=== PATIENT | female | born 1995 | race Caucasian/White ===

== ENCOUNTER → 2017-04-01 | Outpatient (CLI) | payer OTHER ==
--- NOTE | 2017-04-01 15:14 | US ---
EXAMINATION TYPE: US thyroid st tissue head/neck DATE OF EXAM: 04/01/2017 COMPARISON: US CLINICAL HISTORY: E04.9 NONTOXIC GOITER. Nontoxic goiter, enlarged thyroid per patient's physician GLAND SIZE: Right Lobe: 5.8 x 1.7 x 1.9 cm Overall Parenchyma: heterogenous Left Lobe: 5.6 x 1.5 x 1.8 cm Overall Parenchyma: heterogeneous Isthmus Thickness: 0.5 cm NODULES RIGHT: # of nodules measured on right: 1 1. 0.8 X 0.4 x 0.7 cm hypoechoic cystic nodule at the lower pole with well-defined margins. This no dule is wider than tall and shows no intranodular vascularity. Prior size: no previous LEFT: # of nodules measured on left: 1 1. 0.7 X 0.5 x 0.6 cm hyperechoic solid nodule at the upper pole with well-defined margins. This no dule is wider than tall and shows no intranodular vascularity. Prior size: no previous ISTHMUS: # of nodules measured in the isthmus: 0 Bilateral neck scanned, no evidence of lymphadenopathy. Enlarged heterogeneous thyroid with bilateral nodules described above, multiple hypoechoic areas infe rior to left lobe with largest measuring 1.3cm. IMPRESSION: 1. Thyroid enlargement with diffuse heterogeneity. 2. Subcentimeter thyroid nodularity is discussed above
== END | disposition home or self-care (01) ==
LOC: RADUSWWP 14:16
PROVIDERS: ATTEND Family Medicine
DX: E04.9 Nontoxic goiter, unspecified (principal); E04.1 Nontoxic single thyroid nodule
CPT/HCPCS: 76536

== ENCOUNTER → 2017-08-19 | Outpatient (CLI) | payer OTHER ==
--- NOTE | 2017-08-19 07:31 | US ---
EXAMINATION TYPE: US thyroid st tissue head/neck DATE OF EXAM: 08/19/2017 COMPARISON: 04/01/2017 CLINICAL HISTORY: R59.0 Adenopathy of neck. Multiple hypoechoic nodules within bilateral neck with largest = 1.7cm on the right and 1.4cm on the left IMPRESSION: 1. Multiple small hypoechoic nodules within the neck most typical of small lymph nodes.
== END | disposition home or self-care (01) ==
LOC: RADUSWWP 06:59
PROVIDERS: ATTEND Surgery
DX: E04.2 Nontoxic multinodular goiter (principal)
CPT/HCPCS: 76536

== ENCOUNTER 2017-10-27 11:41 | Day surgery (SDC) | payer OTHER ==
--- NOTE | 2017-10-28 08:27 | US ---
Discontinued fine-needle aspiration HISTORY: Thyroid nodule Subcentimeter cystic focus is present at the right lobe of the thyroid. Normal benign-appearing subce ntimeter lymph nodes are noted bilaterally. Thyroid gland is heterogeneous in echotexture. Additional solid subcentimeter nodule noted within the left lobe measuring 6 mm. IMPRESSION: Benign-appearing ultrasound. No fine-needle aspiration performed at this time.
== END 2017-10-27 13:15 | disposition home or self-care (01) ==
LOC: RADPROMAIN 11:41
PROVIDERS: ATTEND Surgery
DX: E04.1 Nontoxic single thyroid nodule (principal); Z53.8 Procedure and treatment not carried out for other reasons
CPT/HCPCS: 76536

== ENCOUNTER 2019-08-03 20:16 | Emergency (ER) | payer OTHER ==
[2019-08-03 20:21] VITALS: BP 108/69; PULSE 120; RESP 18; TEMP 98.3
--- NOTE | 2019-08-03 20:21 | ED ---
Medical Clearance HPI - General Stated complaint: [facility] clearance Time Seen by Provider: 08/03/19 20:19 Source: RN notes reviewed, old records reviewed Mode of arrival: ambulatory (Patient presents with PD) Limitations: no limitations - History of Present Illness Initial comments: Physical 23-year-old female presenting by PD for evaluation prior deferring to incarceration. Patient denying any significant history is significantly altered. Most on exam crying, again patient presents to PD PD wants evaluation secondary to heroin use today. He is within the last hour. Patient is awake and alert able answer questions denying any other significant specific complaints. MD Complaint: medical clearance requested (For [facility]) -: hour(s) (Patient uses heroin within the last hour) Reason for Medical Clearance: other (Drug use) Place: home Alleged Intoxication: Yes Compliant with Home Medications: No Associated Symptoms: other (Patient is without complaint) Treatments Prior to Arrival: none Home medications: Home Medications Medication Instructions Recorded Confirmed Acyclovir 400 mg PO BID 09/30/17 09/30/17 Gabapentin [Neurontin] 100 mg PO BID 09/30/17 09/30/17 QUEtiapine [SEROquel] 100 mg PO HS 09/30/17 09/30/17 Allergies/Adverse reactions: Allergies Allergy/AdvReac Type Severity Reaction Status Date / Time No Known Allergies Allergy Verified 09/30/17 15:30 Review of Systems ROS Statement: Those systems with pertinent positive or pertinent negative responses have been documented in the HPI. ROS Other: All systems not noted in ROS Statement are negative. Past Medical History Past Medical History: Seizure Disorder History of Any Multi-Drug Resistant Organisms: None Reported Past Surgical History: Adenoidectomy, Tonsillectomy Additional Past Surgical History / Comment(s): Past Psychological History: Anxiety, PTSD Past Drug Use History: Heroin, Prescription Drug Abuse General Exam General appearance: alert, in no apparent distress, anxious Head exam: Present: atraumatic, normocephalic, normal inspection Eye exam: Present: normal appearance, PERRL, EOMI. Absent: scleral icterus, conjunctival injection, periorbital swelling ENT exam: Present: normal exam, mucous membranes moist Neck exam: Present: normal inspection. Absent: tenderness, meningismus, lymphadenopathy Respiratory exam: Present: normal lung sounds bilaterally. Absent: respiratory distress, wheezes, rales, rhonchi, stridor Cardiovascular Exam: Present: regular rate, normal rhythm, normal heart sounds. Absent: systolic murmur, diastolic murmur, rubs, gallop, clicks GI/Abdominal exam: Present: soft, normal bowel sounds. Absent: distended, tenderness, guarding, rebound, rigid Extremities exam: Present: normal inspection, full ROM, normal capillary refill. Absent: tenderness, pedal edema, joint swelling, calf tenderness Back exam: Present: normal inspection Neurological exam: Present: alert, oriented X3, CN II-XII intact Psychiatric exam: Present: normal affect, normal mood Skin exam: Present: warm, dry, intact, normal color. Absent: rash Course Vital Signs 08/03/19 20:18 Temperature 98.3 F Pulse Rate 120 H Respiratory 18 Rate Blood Pressure 108/69 O2 Sat by Pulse 99 Oximetry - Reevaluation(s) Reevaluation #1: 08/03/19 20:28 Medical records reviewed Reevaluation #2: 08/03/19 20:28 A she currently awake and alert Medical Decision Making - Medical Decision Making 23 female the ER for incarceration clearance. Patient's awake and alert and will she is feeling today no signs of overdose, patient will be discharged for incarceration Disposition Clinical Impression: Medical clearance for incarceration Disposition: HOME SELF-CARE Condition: Fair Is patient prescribed a controlled substance at d/c from ED?: No Referrals: None,Stated [Primary Care Provider] - 1-2 days
== END 2019-08-03 20:25 | disposition home or self-care (01) ==
LOC: EC 20:16
DX: Z02.89 Encounter for other administrative examinations (principal); F11.90 Opioid use, unspecified, uncomplicated; R45.83 Excessive crying of child, adolescent or adult; G40.909 Epilepsy, unspecified, not intractable, without status epilepticus; F41.9 Anxiety disorder, unspecified; Z79.899 Other long term (current) drug therapy
CPT/HCPCS: 99283

== ENCOUNTER 2020-11-01 15:41 | Emergency (ER) | payer OTHER ==
[2020-11-01 15:59] VITALS: RESP 18
[2020-11-01] MEDS ORDERED: LIDOCAINE 1% INJ 10MG/ML (20 ML MDV) SQ ONE (16:13)
[2020-11-01] MEDS ORDERED: CEPHALEXIN 500MG STARTER PACK 4 CAP BTL PO STA (16:14)
[2020-11-01] MEDS ORDERED: SULFAMETH-TMP DS STARTER PACK 2 TAB BTL PO STA (16:14)
[2020-11-01] MEDS ORDERED: CLINDAMYCIN 600 MG in DEXTROSE 5% IN WATER 50 ML IVPB STA ×2 (16:14)
[2020-11-01] MEDS ORDERED: ACET/COD 300 MG/30 MG STARTER PACK 6 TAB BTL PO STA (16:23)
--- NOTE | 2020-11-01 16:25 | ED ---
Skin/Abscess/FB HPI - General Chief complaint: Skin/Abscess/Foreign Body Stated complaint: Abscess on leg Time Seen by Provider: 11/01/20 15:59 Source: patient Mode of arrival: ambulatory Limitations: no limitations - History of Present Illness Initial comments: 24 or female presented for right upper thigh abscess. Patient states to 3 days ago she noticed a lump in her right upper thigh she states that it felt like an ingrown hair she statesagree larger in size over the past 2 days and developed redness surrounding it. She states she believes is abscess that she has had one in the past. Patient denies being immune compromised she denies chronic steroid use, denies splenectomy. Pt maki fevers, chills, general malaise nausea vomiting chest pain dyspnea, urinary changes. Patient denies other lesions. pt unsure is she has had MRSA In the past. History of previous Heroin use. Patient appear nontoxic on arrival no distress, but does appear uncomfortable if legs touch each other. - Related Data Home Medications Medication Instructions Recorded Confirmed Acyclovir 400 mg PO BID 09/30/17 09/30/17 Gabapentin [Neurontin] 100 mg PO BID 09/30/17 09/30/17 QUEtiapine [SEROquel] 100 mg PO HS 09/30/17 09/30/17 Previous Rx's Medication Instructions Recorded Cephalexin [Keflex] 500 mg PO Q6HR 7 Days #28 cap 11/01/20 Sulfamethox-Tmp 800-160Mg [Bactrim 2 tab PO Q12HR 7 Days #28 tab 11/01/20 DS 800-160 mg] Allergies Allergy/AdvReac Type Severity Reaction Status Date / Time No Known Allergies Allergy Verified 11/01/20 15:59 Review of Systems ROS Statement: Those systems with pertinent positive or pertinent negative responses have been documented in the HPI. ROS Other: All systems not noted in ROS Statement are negative. Past Medical History Past Medical History: Seizure Disorder History of Any Multi-Drug Resistant Organisms: None Reported Past Surgical History: Adenoidectomy, Tonsillectomy Additional Past Surgical History / Comment(s): Past Psychological History: Anxiety, PTSD Smoking Status: Current every day smoker Past Drug Use History: Heroin, Prescription Drug Abuse General Exam - General Exam Comments Initial Comments: General: The patient is awake and alert, in no distress Eye: Pupils are equal, round and reactive to light, extra-ocular movements are intact. No nystagmus. There is normal conjunctiva bilaterally. No signs of icterus. Ears, nose, mouth and throat: There are moist mucous membranes and no oral lesions. Neck: The neck is supple, there is no tenderness or JVD. Cardiovascular: There is a regular rate and rhythm. No murmur, rub or gallop is appreciated. Respiratory: Lungs are clear to auscultation, respirations are non-labored, breath sounds are equal. No wheezes, stridor, rales, or rhonchi. Gastrointestinal: Soft, non-distended, non-tender abdomen without masses or organomegaly noted. There is no rebound or guarding present. Musculoskeletal: Normal ROM, no tenderness. Strength 5/5. Sensation intact. Radial pulses equal bilaterally 2+. Neurological: A&O x 3. CN II-XII intact grossly, There are no obvious motor or sensory deficits. Coordination appears grossly intact. Speech is normal. Skin: Skin is warm and dry and no rashe. Red raised lesions that is fluctuant of the right inner upper thigh, surrounding redness, mild induration, warmth no crepitus. no involvement of the genitalia. Psychiatric: Cooperative, appropriate mood & affect, normal judgment. Limitations: no limitations Course Vital Signs 11/01/20 11/01/20 15:57 17:54 Temperature 98.5 F 98.3 F Pulse Rate 118 H 109 H Respiratory 18 18 Rate Blood Pressure 104/73 117/92 O2 Sat by Pulse 100 98 Oximetry Procedures - Incision & Drainage Consent Obtained: verbal consent, written consent (Time out at 5:04 PM, site marked.) Indication: abscess Site: lower extremity Size (cm): 2 Anesthetic Used: lidocaine 1% Amount (mLs): 1 I&D Cleaning Method: Iodine Sterile Field Used?: No Scalpel Used: #11 Needle Aspiration Performed?: No Irrigation Performed?: No I&D Drainage Obtained: Pus, Blood Patient Tolerated Procedure: well, no complications Medical Decision Making - Medical Decision Making Abscess on exam. Pt initiated on IV abx in ER. Patient will be discharged on orals. denies constitutional symptoms. pt afebrile. does not appear toxic. abscess was drained, significant amount of purulent drainage. pt discharged appearing well agreeble to care plan on keflex and bactrim. Dr Russo agreeable to care plan. - Lab Data Lab Results 11/01/20 Range/Units 16:36 Urine HCG, Qual Not Detected (Not Detectd) Disposition Clinical Impression: Abscess of right thigh Disposition: HOME SELF-CARE Condition: Good Instructions (If sedation given, give patient instructions): Abscess Incision and Drainage (ED), Abscess (ED) Additional Instructions: Please use medication as discussed. Please follow-up with family doctor in the next 2 days. Please return to emergency room if the symptoms increase or worsen or for any other concerns. Prescriptions: Sulfamethox-Tmp 800-160Mg [Bactrim DS 800-160 mg] 2 tab PO Q12HR 7 Days #28 tab Cephalexin [Keflex] 500 mg PO Q6HR 7 Days #28 cap Is patient prescribed a controlled substance at d/c from ED?: No Referrals: Ed Jean MD [Primary Care Provider] - 1-2 days Time of Disposition: 17:14
[2020-11-01 17:57] VITALS: BP 117/92; PULSE 109; TEMP 98.3
== END 2020-11-01 17:56 | disposition home or self-care (01) ==
LOC: EC 15:41
DX: L02.415 Cutaneous abscess of right lower limb (principal); F43.10 Post-traumatic stress disorder, unspecified; F41.9 Anxiety disorder, unspecified; G40.909 Epilepsy, unspecified, not intractable, without status epilepticus; F17.200 Nicotine dependence, unspecified, uncomplicated; Z79.899 Other long term (current) drug therapy
CPT/HCPCS: 81025; 99283; 10060; 96365; J2001

== ENCOUNTER 2022-03-28 21:19 | Inpatient (IN) | payer OTHER ==
--- NOTE | 2022-03-28 22:33 | ED ---
General Adult HPI - General Chief complaint: Skin/Abscess/Foreign Body Stated complaint: Lt hand spider bite/Infection Time Seen by Provider: 03/28/22 22:32 Source: patient Mode of arrival: ambulatory Limitations: no limitations - History of Present Illness Initial comments: Patient presents to the ED with her mother for evaluation. Patient states that she is an IV drug user, and she states that she injected heroin into her left hand yesterday. Patient states that she noticed a little redness and pain in the area in which she injected yesterday, but she states that her left hand redness and pain have increased significantly today. Patient states that she has also developed purulent drainage at the injection site, as well as left hand swelling. Patient states that she came to the ED yesterday to be seen, but it was so busy that she decided to leave before being seen. Patient denies fever, chills, headache, focal neuro deficit, chest pain, dyspnea, dizziness, abdominal pain, nausea or vomiting, or any other symptoms or complaints. - Related Data Home Medications Medication Instructions Recorded Confirmed Acyclovir 400 mg PO BID 09/30/17 09/30/17 Gabapentin [Neurontin] 100 mg PO BID 09/30/17 09/30/17 QUEtiapine [SEROquel] 100 mg PO HS 09/30/17 09/30/17 Previous Rx's Medication Instructions Recorded Sulfamethox-Tmp 800-160Mg [Bactrim 2 tab PO Q12HR 7 Days #28 tab 11/01/20 DS 800-160 mg] cephALEXin [Keflex] 500 mg PO Q6HR 7 Days #28 cap 11/01/20 Allergies Allergy/AdvReac Type Severity Reaction Status Date / Time No Known Allergies Allergy Verified 11/01/20 15:59 Review of Systems ROS Statement: Those systems with pertinent positive or pertinent negative responses have been documented in the HPI. ROS Other: All systems not noted in ROS Statement are negative. Past Medical History Past Medical History: No Reported History, Seizure Disorder History of Any Multi-Drug Resistant Organisms: None Reported Past Surgical History: Adenoidectomy, Tonsillectomy Additional Past Surgical History / Comment(s): Past Psychological History: Anxiety, PTSD Smoking Status: Current every day smoker Past Alcohol Use History: None Reported Past Drug Use History: Heroin, Prescription Drug Abuse General Exam Limitations: no limitations General appearance: alert, in no apparent distress Head exam: Present: atraumatic, normocephalic Eye exam: Present: normal appearance, EOMI ENT exam: Present: mucous membranes moist Respiratory exam: Present: normal lung sounds bilaterally. Absent: respiratory distress, wheezes, rales, rhonchi, stridor Cardiovascular Exam: Present: normal rhythm, tachycardia, normal heart sounds, other (Normal radial pulses bilaterally) GI/Abdominal exam: Present: soft. Absent: tenderness, guarding Extremities exam: Present: other (Left hand swelling, induration, erythema and tenderness consistent with cellulitis; erythema extends proximally to mid forearm ventrally; there is an area along left lateral hand just lateral to the proximal thenar compartment which is draining purulent discharge (cultures obtained)) Neurological exam: Present: alert, oriented X3. Absent: motor sensory deficit Psychiatric exam: Present: anxious Skin exam: Present: warm, dry Course Vital Signs 03/28/22 22:23 Temperature 98.1 F Pulse Rate 112 H Respiratory 20 Rate Blood Pressure 105/59 O2 Sat by Pulse 100 Oximetry - Reevaluation(s) Reevaluation #1: 03/29/22 01:35 Case, H&P, test results thus far and ED management thus far were discussed with Dr. Gramajo. She accepts hospital admission. She recommends infectious disease consultation. She has no further recommendations at this time. Medical Decision Making - Medical Decision Making Given the reported rapid progression of the patient's left hand cellulitis (per patient), in addition to the fact that the patient is an IV drug abuser, will admit the patient to the hospital for broad-spectrum IV antibiotic treatment and close monitoring. Dr. Gramajo has accepted hospital admission. Patient has no evidence of subcutaneous gas or osteomyelitis on x-ray. Patient is afebrile and without leukocytosis. Patient is aware of her test results, and she agrees with hospital admission at this time. - Lab Data Result diagrams: 03/29/22 00:40 03/29/22 00:40 Lab Results 03/29/22 03/29/22 03/29/22 Range/Units 00:40 00:40 00:40 WBC 6.9 (3.8-10.6) k/uL RBC 4.11 (3.80-5.40) m/uL Hgb 11.9 (11.4-16.0) gm/dL Hct 36.7 (34.0-46.0) % MCV 89.2 (80.0-100.0) fL MCH 29.0 (25.0-35.0) pg MCHC 32.5 (31.0-37.0) g/dL RDW 13.4 (11.5-15.5) % Plt Count 221 (150-450) k/uL MPV 8.0 Neutrophils % 39 % Lymphocytes % 49 % Monocytes % 7 % Eosinophils % 1 % Basophils % 1 % Neutrophils # 2.7 (1.3-7.7) k/uL Lymphocytes # 3.4 (1.0-4.8) k/uL Monocytes # 0.5 (0-1.0) k/uL Eosinophils # 0.0 (0-0.7) k/uL Basophils # 0.1 (0-0.2) k/uL Sodium 134 L (137-145) mmol/L Potassium 3.7 (3.5-5.1) mmol/L Chloride 101 (98-107) mmol/L Carbon Dioxide 28 (22-30) mmol/L Anion Gap 5 mmol/L BUN 4 L (7-17) mg/dL Creatinine 0.50 L (0.52-1.04) mg/dL Est GFR (CKD-EPI)AfAm >90 (>60 ml/min/1.73 sqM) Est GFR (CKD-EPI)NonAf >90 (>60 ml/min/1.73 sqM) Glucose 105 H (74-99) mg/dL Plasma Lactic Acid Sukhjinder 1.0 (0.7-2.0) mmol/L Calcium 8.3 L (8.4-10.2) mg/dL Total Bilirubin 0.2 (0.2-1.3) mg/dL AST 26 (14-36) U/L ALT 29 (4-34) U/L Alkaline Phosphatase 137 H (38-126) U/L Total Protein 6.6 (6.3-8.2) g/dL Albumin 3.5 (3.5-5.0) g/dL - Radiology Data Left wrist x-rays: Significant posterior soft tissue swelling. No fracture seen. No sign of osteomyelitis. Disposition Clinical Impression: Cellulitis of left hand, IV drug user Disposition: ADMITTED IP TO THIS HOSP Condition: Stable Is patient prescribed a controlled substance at d/c from ED?: No Time of Disposition: 01:36
[2022-03-28] MEDS ORDERED: SODIUM CHLORIDE 0.9% 1,000 ML IV ONE (22:43)
[2022-03-28] MEDS ORDERED: VANCOMYCIN IV PER PHARMACY 1 EACH MISC MISCELLANE STA (22:45)
[2022-03-28] MEDS ORDERED: PIPERACILLIN-TAZOBACTAM 3.375 GM in SODIUM CHLORIDE 0.9% 100 ML IVPB STA (22:46)
[2022-03-28] MEDS ORDERED: VANCOMYCIN 1,000 MG in SODIUM CHLORIDE 0.9% 250 ML IVPB ONE (23:30)
--- NOTE | 2022-03-28 23:56 | XR ---
EXAMINATION TYPE: XR wrist complete LT DATE OF EXAM: 03/28/2022 COMPARISON: NONE HISTORY: Pain TECHNIQUE: 3 views FINDINGS: There is soft tissue swelling on the dorsum of the wrist. Metacarpals are intact. Carpal wilian nan are intact. There are no erosions. IMPRESSION: Significant posterior soft tissue swelling. No fracture seen. No sign of osteomyelitis.
[2022-03-29 01:29] LABS: Basophils # (A) 0.1 k/uL (0-0.2); Basophils % (A) 1 %; Eosinophils % (A) 1 %; HCT 36.7 % (34.0-46.0); HGB 11.9 gm/dL (11.4-16.0); Lymphocytes # (A) 3.4 k/uL (1.0-4.8); Lymphocytes % (A) 49 %; MCHC 32.5 g/dL (31.0-37.0); MCV 89.2 fL (80.0-100.0); Monocytes # (A) 0.5 k/uL (0-1.0); Monocytes % (A) 7 %; Neutrophils # (A) 2.7 k/uL (1.3-7.7); Neutrophils % (A) 39 %; Platelet Count 221 k/uL (150-450); RBC 4.11 m/uL (3.80-5.40); RDW 13.4 % (11.5-15.5); WBC 6.9 k/uL (3.8-10.6)
[2022-03-29] MEDS ORDERED: NALOXONE 0.4 MG/ML 1 ML VIAL IV PRN (01:36)
[2022-03-29 01:44] LABS: ALT 29 U/L (4-34); AST 26 U/L (14-36); African American GFR (CKD) >90 (>60 ml/min/1.73 sqM); Albumin 3.5 g/dL (3.5-5.0); Alkaline Phosphatase 137 U/L (38-126); Anion Gap 5 mmol/L; Blood Urea Nitrogen 4 mg/dL (7-17); Calcium 8.3 mg/dL (8.4-10.2); Carbon Dioxide 28 mmol/L (22-30); Chloride 101 mmol/L (98-107); Glucose 105 mg/dL (74-99); Non-African American GFR(CKD) >90 (>60 ml/min/1.73 sqM); Potassium 3.7 mmol/L (3.5-5.1); Sodium 134 mmol/L (137-145); Total Bilirubin 0.2 mg/dL (0.2-1.3); Total Protein 6.6 g/dL (6.3-8.2)
[2022-03-29] MEDS: HYDROmorphone 0.5 MG/0.5 ML SYRINGE IVP PRN ×4 (03:23→22:27)
[2022-03-29] MEDS: SODIUM CHLORIDE 0.9% 1,000 ML IV SCH ×2 (08:09→22:20)
[2022-03-29] MEDS: VANCOMYCIN 1,000 MG in SODIUM CHLORIDE 0.9% 250 ML IVPB SCH ×2 (09:06→17:37)
[2022-03-29] MEDS ORDERED: SODIUM CHLORIDE 0.9% 500 ML 500 ML IV ONE (09:19)
[2022-03-29] MEDS ORDERED: ACETAMINOPHEN TAB 325 MG TAB PO PRN (09:27)
[2022-03-29] MEDS ORDERED: IBUPROFEN 400 MG TAB PO PRN (09:27)
[2022-03-29] MEDS ORDERED: hydrOXYzine HCL 25 MG TAB PO PRN (09:27)
[2022-03-29] MEDS ORDERED: LOPERAMIDE 2 MG CAP PO PRN (09:28)
[2022-03-29] MEDS: cloNIDine HCL 0.1 MG TAB PO SCH ×2 (10:29→22:20)
--- NOTE | 2022-03-29 13:04 | P.HPIM ---
History of Present Illness This is a pleasant 26 years old female with past medical history of \Seizure Disorder, Anxiety, PTSD, every day smoker, heroine and prescription drug abuse. She is a patient of Dr. Jean She presents because of right hand/wrist infection for the last few days which is gradually getting worse, she admits to injecting heroin in that area before started getting infected. 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 Also she has an open ulcers with a lot of purulent discharge, dressing placed. She denies any other symptoms, no chest pain or dyspnea, no change in urine or bowel habits. No fever. Change in mental status and she looks calm no abdomen through active withdrawal currently. She smokes about 1 pack per day and she was counseled but she does not want to quit, and she declined nicotine patch. No alcohol. She states that she was his only heroine, but she agrees to do a urine drug screen. Patient denies signs and symptoms of depression, no hopelesseness/helplessness, denies suicidal or homicidal ideation, she denies hallucination Patient is mildly tachycardic, rest of Vitas look stable. Patient is afebrile. Labs show an unremarkable CBC, BMP, liver enzymes. Serum hCG test is abnormal d etected. On admission she received 1 dose of Zosyn and continue with vancomycin pharmacy to dose with ID team consult Review of Systems CONSTITUTIONAL: No fever, no malaise, no fatigue. HEENT: No recent visual problems or hearing problems. Denied any sore throat. CARDIOVASCULAR: No orthopnea, PND, no palpitations, no syncope. PULMONARY: No shortness of breath, no cough, no hemoptysis. GASTROINTESTINAL: No diarrhea, no nausea, no vomiting, no abdominal pain. N ormoactive bowel sounds. NEUROLOGICAL: No headaches, no weakness, no numbness. HEMATOLOGICAL: Denies any bleeding or petechiae. GENITOURINARY: Denies any burning micturition, frequency, or urgency. MUSCULOSKELETAL/RHEUMATOLOGICAL: Denies any joint pain, swelling, or any muscle pain. Except what is mentioned above ENDOCRINE: Denies any polyuria or polydipsia. Past Medical History Past Medical History: No Reported History, Seizure Disorder History of Any Multi-Drug Resistant Organisms: None Reported Past Surgical History: Adenoidectomy, Tonsillectomy Additional Past Surgical History / Comment(s): Past Psychological History: Anxiety, PTSD Smoking Status: Current every day smoker Past Alcohol Use History: None Reported Past Drug Use History: Heroin, Prescription Drug Abuse Medications and Allergies Home Medications Medication Instructions Recorded Confirmed Type No Known Home Medications 03/29/22 03/29/22 History Allergies Allergy/AdvReac Type Severity Reaction Status Date / Time No Known Allergies Allergy Verified 03/29/22 07:44 Physical Exam Vitals: Vital Signs Temp Pulse Pulse Resp BP BP Pulse Ox 03/29/22 07:00 98.3 F 92 16 112/62 97 03/29/22 02:51 98.2 F 101 H 18 101/53 96 03/28/22 22:23 98.1 F 112 H 20 105/59 100 Intake and Output 03/28/22 03/29/22 03/29/22 22:59 06:59 14:59 Intake Total 350 Balance 350 Intake: Intake, IV Titration 350 Amount Piperacillin-Tazobactam 3 100 .375 gm In Sodium Chloride 0.9% 100 ml @ 200 mls/hr IVPB ONCE STA Rx#:[id number] Vancomycin 1,000 mg In 250 Sodium Chloride 0.9% 250 ml @ 125 mls/hr IVPB Q8H [facility] Rx#:[id number] Other: Weight 58.967 kg 58.967 kg GENERAL: The patient is alert and oriented x3, not in any acute distress. Well developed, well nourished. HEENT: Pupils are round and equally reacting to light. EOMI. No scleral icterus. No conjunctival pallor. Normocephalic, atraumatic. No pharyngeal erythema. No thyromegaly. CARDIOVASCULAR: S1 and S2 present. No murmurs, rubs, or gallops. PULMONARY: Chest is clear to auscultation, no wheezing or crackles. ABDOMEN: Soft, nontender, nondistended, normoactive bowel sounds. No palpable organomegaly. MUSCULOSKELETAL: No joint swelling or deformity. -EXTREMITIES: No cyanosis, clubbing, or pedal edema. open ulcer with purulent discharge at the base of the right thumb, about 1.5-2 inches in diameter , right hand is swollen and movement of wrist and fingers are significantly restricted NEUROLOGICAL: Gross neurological examination did not reveal any focal deficits. SKIN: No rashes. No petechiae Results CBC & Chem 7: 03/29/22 00:40 03/29/22 00:40 Labs: Abnormal Lab Results - Last 24 Hours (Table) 03/29/22 Range/Units 00:40 Sodium 134 L (137-145) mmol/L BUN 4 L (7-17) mg/dL Creatinine 0.50 L (0.52-1.04) mg/dL Glucose 105 H (74-99) mg/dL Calcium 8.3 L (8.4-10.2) mg/dL Alkaline Phosphatase 137 H (38-126) U/L Thrombosis Risk Factor Assmnt - Choose All That Apply Any of the Below Risk Factors Present?: No Other Risk Factors: No Thrombosis Risk Factor Assessment Level: Very Low Risk Assessment and Plan Assessment: Right hand/wrist cellulitis at the base of the thumb with open ulcer and purulent discharge, mostly related to injectable drugs Heroine abuse and at-risk of withdrawal Anxiety and PTSD, not an active issue, not in active issue History of seizure Nicotine dependence Plan: This is a pleasant 26 years old female who presents with right hand cellulitis related to her IV drug abuse and heroine withdrawal Continue with antibiotic per ID team. Currently she is on IV vancomycin, send wound culture Continue with IV fluids Consult surgical orthopedic team Medication for heroin withdrawal including clonidine, benzodiazepine, Imodium, Atarax when necessary, Tylenol and NSAIDs when necessary for pain control Labs and medication were reviewed.. Continue same treatment. Continue with symptomatic treatment. Resume home medication. Monitor lytes and vitals. DVT and GI prophylaxis. Further recommendations depends on the clinical course of the patient DVT prophylaxis: Subcutaneous heparin GI Prophylaxis: Pepcid Prognosis is guarded
--- NOTE | 2022-03-29 15:16 | P.CNOR ---
History of Present Illness - [facility] Consult date: 03/29/22 History of present illness: this patient is a 26-year-old female with a past medical history of heroine use, current every day smoker who presented to [facility] emergency department last evening with complaints of left hand pain and swelling. Patient states she injected heroin into her left hand on Tuesday morning. She states she subsequently developed erythema, warmth, swelling, and an open wound in this location. She states the pain and swelling worsened, therefore she presented to [facility] emergency department last evening. Patient was started on IV antibiotics and admitted under the care of internal medicine with consult placed to orthopedic surgery. Patient is examined bedside this afternoon. She states she is experiencing pain in the left hand, otherwise she feels well. She denies fevers, chills, nausea, vomiting. She denies numbness or tingling of the hand or fingers. No additional complaints at this time. Past Medical History Past Medical History: No Reported History, Seizure Disorder History of Any Multi-Drug Resistant Organisms: None Reported Past Surgical History: Adenoidectomy, Tonsillectomy Additional Past Surgical History / Comment(s): Past Psychological History: Anxiety, PTSD Smoking Status: Current every day smoker Past Alcohol Use History: None Reported Past Drug Use History: Heroin, Prescription Drug Abuse Medications and Allergies Home Medications Medication Instructions Recorded Confirmed Type No Known Home Medications 03/29/22 03/29/22 History Allergies Allergy/AdvReac Type Severity Reaction Status Date / Time No Known Allergies Allergy Verified 03/29/22 07:44 Physical Examination On examination, patient is lying in bed in no apparent distress. She is alert and oriented 3. Her head appears normocephalic and atraumatic. Her breathing appears nonlabored. Focused examination of the left hand is conducted. On insp ection of the left hand, there is a large wound at the base of the thumb with purulent discharge. There is surrounding erythema and warmth. There are no areas of fluctuance in the hand, wrist, forearm. Minimal pain with passive range of motion of the thumb and wrist. Motor and sensory function is intact of the left upper extremity. The thumb and fingers are warm and well perfused with brisk capillary refill distally. Results Left wrist x-ray 03/28/22: No acute fractures. No acute bony abnormalities. - Labs Labs: Abnormal Lab Results - Last 24 Hours (Table) 03/29/22 Range/Units 00:40 Sodium 134 L (137-145) mmol/L BUN 4 L (7-17) mg/dL Creatinine 0.50 L (0.52-1.04) mg/dL Glucose 105 H (74-99) mg/dL Calcium 8.3 L (8.4-10.2) mg/dL Alkaline Phosphatase 137 H (38-126) U/L Microbiology - Last 24 Hours (Table) 03/29/22 01:15 Wound Culture - Preliminary Hand - Left H & H 03/29/22 Range/Units 00:40 Hgb 11.9 (11.4-16.0) gm/dL Hct 36.7 (34.0-46.0) % Result Diagrams: 03/29/22 00:40 03/29/22 00:40 Assessment and Plan (1) Cellulitis of left hand Current Visit: Yes Status: Acute Code(s): L03.114 - CELLULITIS OF LEFT UPPER LIMB SNOMED Code(s): 55954282 (2) Ulceration Current Visit: Yes Status: Acute Code(s): QAL5101 - SNOMED Code(s): 183259741 (3) Abscess of hand Current Visit: Yes Status: Acute Code(s): L02.519 - CUTANEOUS ABSCESS OF UNSPECIFIED HAND SNOMED Code(s): 8216752 Plan: - The clinical findings were discussed with the patient and nursing. The patient was discussed in detail with Dr. Arredondo. Recommend I&D of the left hand today. Unfortunately, patient did eat lunch. Patient will be made NPO at this time and we will plan for surgery tonight. - IV antibiotics and medical management per admitting team.
[2022-03-29] MEDS ORDERED: IV FLUID CONTINUATION 1,000 ML IV ONE (19:47)
--- NOTE | 2022-03-29 20:54 | P.OP ---
Date of Procedure: 03/29/22 Preoperative Diagnosis: 1. Left hand abscess 2. History of IV drug use 3. Current every day cigarette smoker Postoperative Diagnosis: Same Procedure(s) Performed: Irrigation and debridement of left hand abscess and application of negative pressure wound VAC Anesthesia: MAC Surgeon: Humberto Arredondo Press Operator Assistant #1: Tracy Prince Estimated Blood Loss (ml): 50 Pathology: none sent Condition: stable Disposition: PACU Indications for Procedure: The patient is a 26-year-old female with a medical history significant for IV drug use and being a current every day cigarette smoker who developed an open draining wound at the base of her left thumb. The patient states that on Tuesday she attempted to inject heroin into a vein in that area. She developed progressively worsening pain, redness, and swelling. It began opening up and draining and she presented to the emergency department. She was found to have an open draining wound with purulent material. I recommended irrigation and debridement with application of a wound VAC. She understands the potential risks and complications of surgery including but certainly not limited to risk of continued or worsened infection, spread of infection, damage to local blood vessels or nerves, tendon damage, need for further surgery, and possibly loss of life or limb. She understand that she is at a higher risk of having a complication due to her IV drug use and smoking. She was strongly encouraged to quit smoking. He provided her consent to go forward with surgery. Operative Findings: There was an abscess at the base of the left thumb that extended into the thenar eminence. There was a superficial exposed vein and the tendon in the first dorsal compartment of the wrist was seen Description of Procedure: The patient was identified in preoperative holding and the correct left upper extremity was marked with my initials. I reviewed the consent form with the patient all of her questions were answered. She was brought back to the ope rating room and positioned on her gurney. A hand table was placed. Anesthesia was provided by the anesthesia department. The left arm was prepped and draped in the standard sterile fashion. Prior to starting surgery timeout was performed identifying the correct patient, operative extremity, and procedure. I began by opening up loculations deep within the abscess into the thenar eminence. A small amount of purulent material was expressed. The wound was then thoroughly irrigated using sterile saline, 3 L and cystoscopy tubing. Following irrigation and debridement of the wound an incisional wound VAC was placed. At the completion of the procedure the patient's radial pulse was palpable. All the fingers were warm and well perfused. The hand looked clinically better. Kerlix fluffs and a wrap were applied followed by an Apollo wrap. The patient was brought to recovery having tolerated the procedure well. Plan: The patient will need IV antibiotics under the discretion of infectious disease. The patient can have her dressing taken down on postoperative day #2. I will have my hand partner Dr. Dumont diet the patient to make sure she doesn't need any further formal surgical intervention. Wound care under the discretion of infectious disease and the wound team.
[2022-03-29] MEDS: FAMOTIDINE 20 MG/2 ML VIAL IV SCH (22:20)
[2022-03-29] MEDS: HEPARIN SODIUM,PORCINE/PF 5,000 UNIT/0.5 ML SYRINGE SQ SCH (22:21)
--- NOTE | 2022-03-29 23:30 | P.CONS ---
History of Present Illness - Reason for Consult Consult date: 03/29/22 Left hand abscess Requesting physician: Dre Milner - Chief Complaint Left hand pain and swelling x few days - History of Present Illness Patient is a 26-year-old female with a past medical history significant for IV drug abuse patient recently injected into the left hand at the base of the left thumb and apparently missed the vein patient subsequent noticed to having increasing pain swelling redness and ulceration to the left hand at the base of the thumb patient complaining of pain describing it to be throbbing intensity normal time With associated swelling redness and some drainage with these symptoms the patient presented to the hospital on arrival to the ER the patient was afebrile patient did have a normal white count kidney function was normal local cultures obtained which are currently pending patient did have x-ray of the wrist which shows significant soft tissue swelling no fracture seen no signs of osteomyelitis patient was started on vancomycin infectious disease was consulted for further management of antibiotic therapy Review of Systems Positive point has been mentioned in the HPI rest of the systems are negative Past Medical History Past Medical History: No Reported History, Seizure Disorder History of Any Multi-Drug Resistant Organisms: None Reported Past Surgical History: Adenoidectomy, Tonsillectomy Additional Past Surgical History / Comment(s): Past Psychological History: Anxiety, PTSD Smoking Status: Current every day smoker Past Alcohol Use History: None Reported Past Drug Use History: Heroin, Prescription Drug Abuse Medications and Allergies Home Medications Medication Instructions Recorded Confirmed Type Cephalexin [Keflex] 500 mg PO Q6HR 14 Days #56 cap 03/31/22 Rx Allergies Allergy/AdvReac Type Severity Reaction Status Date / Time No Known Allergies Allergy Verified 03/29/22 07:44 Physical Exam Vitals: Vital Signs Temp Pulse Pulse Resp BP BP Pulse Ox 03/29/22 10:31 111/70 03/29/22 07:00 98.3 F 92 16 112/62 97 03/29/22 02:51 98.2 F 101 H 18 101/53 96 03/28/22 22:23 98.1 F 112 H 20 105/59 100 Intake and Output 03/28/22 03/29/22 03/29/22 22:59 06:59 14:59 Intake Total 350 Balance 350 Intake: Intake, IV Titration 350 Amount Piperacillin-Tazobactam 3 100 .375 gm In Sodium Chloride 0.9% 100 ml @ 200 mls/hr IVPB [facility] Rx#:[id number] Vancomycin 1,000 mg In 250 Sodium Chloride 0.9% 250 ml @ 125 mls/hr IVPB Q8H [facility] Rx#:[id number] Other: Weight 58.967 kg 58.967 kg GENERAL DESCRIPTION: Middle-aged female lying in bed, no distress. No tachypnea or accessory muscle of respiration use. HEENT: Shows Pallor , no scleral icterus. Oral mucous membrane is dry. No pharyngeal erythema or thrush NECK: Trachea central, no thyromegaly. LUNGS: Unlabored breathing. Clear to auscultation anteriorly. No wheeze or crackle. HEART: S1, S2, regular rate and rhythm. No loud murmur ABDOMEN: Soft, no tenderness , guarding or rigidity, no organomegaly EXTREMITIES: Left hand at the base of the thumb did have the wound with swelling and redness and some drainage. SKIN: No rash, no masses palpable. NEUROLOGICAL: The patient is awake, alert, oriented x3, mood and affect normal. Results CBC & Chem 7: 03/30/22 08:26 03/31/22 06:36 Labs: Abnormal Lab Results - Last 24 Hours (Table) 03/29/22 Range/Units 00:40 Sodium 134 L (137-145) mmol/L BUN 4 L (7-17) mg/dL Creatinine 0.50 L (0.52-1.04) mg/dL Glucose 105 H (74-99) mg/dL Calcium 8.3 L (8.4-10.2) mg/dL Alkaline Phosphatase 137 H (38-126) U/L Microbiology - Last 24 Hours (Table) 03/29/22 01:15 Wound Culture - Preliminary Hand - Left Assessment and Plan (1) Abscess of hand Status: Acute Code(s): L02.519 - CUTANEOUS ABSCESS OF UNSPECIFIED HAND SNOMED Code(s): 2633927 (2) Cellulitis of left hand Status: Acute Code(s): L03.114 - CELLULITIS OF LEFT UPPER LIMB SNOMED Code(s): 89191561 Plan: 1patient presented hospital with left hand abscess at the base of the left thumb from injection drug use likely from gram-positive skin michelle less likely gram-negative infection with concern for underlying abscess that would benefit from surgical drainage for which orthopedic has been consulted. 2vancomycin pharmacy to dose target trough of 15 while watching kidney function and vancomycin trough closely. We will follow on clinical condition and cultures to further adjust medication if needed Thank you for this consultation will follow this patient along with you Time with Patient: Greater than 30
[2022-03-30] MEDS: VANCOMYCIN 1,000 MG in SODIUM CHLORIDE 0.9% 250 ML IVPB SCH ×2 (01:11→09:42)
[2022-03-30] MEDS ORDERED: VANCOMYCIN TROUGH DUE 1 EACH MISC MISCELLANE ONE (09:00)
[2022-03-30] MEDS: HYDROmorphone 0.5 MG/0.5 ML SYRINGE IVP PRN ×3 (09:40→19:39)
[2022-03-30] MEDS: HEPARIN SODIUM,PORCINE/PF 5,000 UNIT/0.5 ML SYRINGE SQ SCH ×3 (09:41→19:42)
[2022-03-30] MEDS: FAMOTIDINE 20 MG/2 ML VIAL IV SCH (09:42)
[2022-03-30] MEDS: cloNIDine HCL 0.1 MG TAB PO SCH ×2 (09:42→19:39)
[2022-03-30 11:08] LABS: Basophils # (A) 0.02 X 10*3/uL (0.00-0.10); Basophils % (A) 0.4 %; Eosinophils # (A) 0.09 X 10*3/uL (0.04-0.35); Eosinophils % (A) 1.8 %; HCT 37.1 % (37.2-46.3); HGB 11.5 g/dL (12.0-15.0); Immature Grans, Automated 0.2 %; Lymphocytes # (A) 2.44 X 10*3/uL (0.90-5.00); Lymphocytes % (A) 47.5 %; MCH 27.5 pg (27.0-32.0); MCV 88.8 fL (80.0-97.0); Mean Platelet Volume 10.9 fL (9.5-12.2); Monocytes # (A) 0.38 X 10*3/uL (0.20-1.00); Monocytes % (A) 7.4 %; NRBC Per 100 WBC 0 /100 WBCS (0.0-0.0); Neutrophils % (A) 42.7 %; Platelet Count 252 X 10*3/uL (140-440); RBC 4.18 X 10*6/uL (4.10-5.20); RDW 13.2 % (11.5-14.5); WBC 5.14 X 10*3/uL (4.50-10.00)
[2022-03-30 11:51] LABS: ALT 25 U/L (8-44); AST 24 U/L (13-35); African American GFR (CKD) 152.7 (60.0-200.0); Albumin 3.4 g/dL (3.8-4.9); Alkaline Phosphatase 118 U/L (41-126); Calcium 8.6 mg/dL (8.7-10.3); Carbon Dioxide 19.4 mmol/L (20.0-27.5); Chloride 109 mmol/L (96-109); Globulin 3.1 g/dL (1.6-3.3); Glucose 99 mg/dL (70-110); Non-African American GFR(CKD) 131.7 (60.0-200.0); Potassium 4.4 mmol/L (3.5-5.5); Sodium 143 mmol/L (135-145); Total Bilirubin <0.15 mg/dL (0.30-1.20); Total Protein 6.5 g/dL (6.2-8.2)
--- NOTE | 2022-03-30 13:56 | P.PN ---
Subjective Progress Note Date: 03/30/22 This patient is a 26- year old female who is status-post irrigation and debridement of left hand abscess and application of wound vac on 03/29/22. Today is post-operative day #1. Patient is examined bedside. She states her hand pain has improved post-operatively. Prevena wound vac in place at this time. She has no new complaints this morning. She denies chest pain, shortness of breath, nausea, vomiting, fevers, chills. Objective - Vital Signs Vital signs: Vital Signs Temp 98.2 F 03/30/22 07:00 Pulse 68 03/30/22 07:00 Resp 14 03/30/22 07:00 BP 95/56 03/30/22 07:00 Pulse Ox 95 03/30/22 07:00 FiO2 Intake & Output 03/29/22 03/30/22 03/30/22 18:59 06:59 18:59 Intake Total 118 1500 0 Output Total 10 Balance 118 1490 0 Weight 58.967 kg Intake: IV 250 Intake, IV Titration 500 Amount Vancomycin 1,000 mg In 500 Sodium Chloride 0.9% 250 ml @ 125 mls/hr IVPB Q8H [facility] Rx#:[id number] Oral 118 750 0 Output: Estimated Blood Loss 10 Other: # Voids 1 - Exam On examination, patient is lying in bed in no apparent distress. She is alert and oriented 3. On inspection of the left hand, there is a surgical dressing in place over a Prevena wound VAC. The Prevena wound VAC has a good seal at this time. The fingers and thumb are warm and well perfused with brisk capillary refill distally. Patient is able to move her fingers and thumb appropriately. Sensation is intact to light touch of the fingers and thumb. - Labs CBC & Chem 7: 03/30/22 08:26 03/30/22 08:25 Labs: Abnormal Lab Results - Last 24 Hours (Table) 03/30/22 03/30/22 Range/Units 08:25 08:26 Hgb 11.5 L (12.0-15.0) g/dL Hct 37.1 L (37.2-46.3) % MCHC 31.0 L (32.0-37.0) g/dL Carbon Dioxide 19.4 L (20.0-27.5) mmol/L BUN 4.0 L (9.0-27.0) mg/dL Creatinine 0.5 L (0.6-1.5) mg/dL BUN/Creatinine Ratio 8.00 L (12.00-20.00) Ratio Calcium 8.6 L (8.7-10.3) mg/dL Total Bilirubin <0.15 L (0.30-1.20) mg/dL Albumin 3.4 L (3.8-4.9) g/dL Albumin/Globulin Ratio 1.10 L (1.60-3.17) g/dL Microbiology - Last 24 Hours (Table) 03/29/22 01:15 Gram Stain - Preliminary Hand - Left Wound Culture - Preliminary Strep pyogenes (grp a) 03/29/22 00:40 Blood Culture - Preliminary Blood No Growth after 24 hours 03/29/22 01:00 Blood Culture - Preliminary Blood No Growth after 24 hours 03/29/22 13:14 Anaerobic Culture - Preliminary Wrist - Left Assessment and Plan Assessment: Status-post irrigation and debridement of left hand abscess and application of wound vac on 03/29/22. Post-operative day #1. (1) Cellulitis of left hand Current Visit: Yes Status: Acute Code(s): L03.114 - CELLULITIS OF LEFT UPPER LIMB SNOMED Code(s): 41529199 (2) Ulceration Current Visit: Yes Status: Acute Code(s): BUG8751 - SNOMED Code(s): 305608938 (3) Abscess of hand Current Visit: Yes Status: Acute Code(s): L02.519 - CUTANEOUS ABSCESS OF UNSPECIFIED HAND SNOMED Code(s): 6529231 Plan: - We will plan to keep wound vac on for another 24 hours. We will remove tomorrow and re-assess wound and need for further surgical intervention. - Keep left hand elevated for swelling control. Pain management as needed. - IV antibiotics per Dr. Guido. - We will follow patient closely.
[2022-03-30] MEDS: SODIUM CHLORIDE 0.9% 1,000 ML IV SCH ×2 (13:58→17:48)
[2022-03-30] MEDS: CLINDAMYCIN 900 MG in DEXTROSE 5% IN WATER 50 ML IVPB SCH ×2 (16:38)
[2022-03-30 18:59] LABS: Urine Alcohol Negative (Negative); Urine Barbiturate Negative (Negative); Urine Cocaine Negative (Negative); Urine Methadone Negative (Negative); Urine Opiates Negative (Negative); Urine Phencyclidine Negative (Negative)
[2022-03-30] MEDS: FAMOTIDINE 20 MG TAB PO SCH (19:39)
--- NOTE | 2022-03-30 22:58 | P.PN ---
Subjective This is a pleasant 26 years old female with past medical history of \Seizure Disorder, Anxiety, PTSD, every day smoker, heroine and prescription drug abuse. She is a patient of Dr. Jean She presents because of right hand/wrist infection for the last few days which is gradually getting worse, she admits to injecting heroin in that area before started getting infected. She has some swelling, tenderness and erythema with limitation of movement and hand pacu rn to considerable degree, she barely can been them. Also she has an open ulcers with a lot of purulent discharge, dressing placed. She denies any other symptoms, no chest pain or dyspnea, no change in urine or bowel habits. No fever. Change in mental status and she looks calm no abdomen through active withdrawal currently. She smokes about 1 pack per day and she was counseled but she does not want to quit, and she declined nicotine patch. No alcohol. She states that she was his only heroine, but she agrees to do a urine drug screen. Patient denies signs and symptoms of depression, no hopelesseness/helplessness, denies suicidal or homicidal ideation, she denies hallucination Patient is mildly tachycardic, rest of Vitas look stable. Patient is afebrile. Labs show an unremarkable CBC, BMP, liver enzymes. Serum hCG test is abnormal detected. On admission she received 1 dose of Zosyn and continue with vancomycin pharmacy to dose with ID team consult 03/30/2022 Patient is calm, no complaints, not in pain not in distress. She still getting clindamycin and cefazolin, wound culture is growing Streptococcus pyogenes Left hand is in heavy dressing was surgery team are planning to reassess the wound tomorrow for any further debridement required. adult protective caseworker met with the patient today, Patient has no intention to quit illicit drugs upon discharge, despite patient was counseled Objective - Vital Signs Vital signs: Vital Signs Temp 98.2 F 03/30/22 07:00 Pulse 68 03/30/22 07:00 Resp 14 03/30/22 07:00 BP 95/56 03/30/22 07:00 Pulse Ox 95 03/30/22 07:00 FiO2 Intake & Output 03/29/22 03/30/22 03/30/22 18:59 06:59 18:59 Intake Total 118 1500 0 Output Total 10 Balance 118 1490 0 Weight 58.967 kg Intake: IV 250 Intake, IV Titration 500 Amount Vancomycin 1,000 mg In 500 Sodium Chloride 0.9% 250 ml @ 125 mls/hr IVPB Q8H [facility] Rx#:[id number] Oral 118 750 0 Output: Estimated Blood Loss 10 Other: # Voids 1 - Exam GENERAL: The patient is alert and oriented x3, not in any acute distress. Well developed, well nourished. HEENT: Pupils are round and equally reacting to light. EOMI. No scleral icterus. No conjunctival pallor. Normocephalic, atraumatic. No pharyngeal erythema. No thyromegaly. CARDIOVASCULAR: S1 and S2 present. No murmurs, rubs, or gallops. PULMONARY: Chest is clear to auscultation, no wheezing or crackles. ABDOMEN: Soft, nontender, nondistended, normoactive bowel sounds. No palpable organomegaly. MUSCULOSKELETAL: No joint swelling or deformity. -EXTREMITIES: No cyanosis, clubbing, or pedal edema. Left hand is in extensive dressing with wound VAC in place, rest of exam is deferred to surgery team NEUROLOGICAL: Gross neurological examination did not reveal any focal deficits. SKIN: No rashes. no petechiae. - Labs CBC & Chem 7: 03/30/22 08:26 03/30/22 08:25 Labs: Microbiology - Last 24 Hours (Table) 03/29/22 01:15 Gram Stain - Preliminary Hand - Left Wound Culture - Preliminary Strep pyogenes (grp a) 03/29/22 00:40 Blood Culture - Preliminary Blood No Growth after 24 hours 03/29/22 01:00 Blood Culture - Preliminary Blood No Growth after 24 hours 03/29/22 13:14 Anaerobic Culture - Preliminary Wrist - Left Assessment and Plan Assessment: Right hand/wrist cellulitis at the base of the thumb with open ulcer and purulent discharge, mostly related to injectable drugs, status post I&D and debridement and wound VAC placement Heroine abuse and at-risk of withdrawal Anxiety and PTSD, not an active issue, not in active issue History of seizure Nicotine dependence Plan: This is a pleasant 26 years old female who presents with right hand cellulitis related to her IV drug abuse and heroine withdrawal Continue with antibiotic per ID team. Currently she is on IV clindamycin and cefazolin, follow-up final results for wound culture Continue with IV fluids Consult surgical orthopedic team Wound VAC management as per surgery team Medication for heroin withdrawal including clonidine, benzodiazepine, Imodium, Atarax when necessary, Tylenol and NSAIDs when necessary for pain control Labs and medication were reviewed.. Continue same treatment. Continue with symptomatic treatment. Resume home medication. Monitor lytes and vitals. DVT and GI prophylaxis. Further recommendations depends on the clinical course of the patient DVT prophylaxis: Subcutaneous heparin GI Prophylaxis: Pepcid Prognosis is guarded
[2022-03-31] MEDS: HYDROmorphone 0.5 MG/0.5 ML SYRINGE IVP PRN ×2 (00:11→08:17)
[2022-03-31] MEDS: CLINDAMYCIN 900 MG in DEXTROSE 5% IN WATER 50 ML IVPB SCH ×4 (00:11→08:16)
[2022-03-31 07:17] VITALS: BP 111/68; PULSE 67; RESP 18; TEMP 98
[2022-03-31] MEDS: HEPARIN SODIUM,PORCINE/PF 5,000 UNIT/0.5 ML SYRINGE SQ SCH (08:12)
[2022-03-31] MEDS: cloNIDine HCL 0.1 MG TAB PO SCH (08:16)
[2022-03-31] MEDS: FAMOTIDINE 20 MG TAB PO SCH (08:16)
[2022-03-31 09:14] LABS: African American GFR (CKD) 141.7 (60.0-200.0); Non-African American GFR(CKD) 122.3 (60.0-200.0)
--- NOTE | 2022-03-31 11:19 | P.PN ---
Subjective Progress Note Date: 03/31/22 This patient is a 26- year old female who is status-post irrigation and debridement of left hand abscess and application of wound vac on 03/29/22. Today is post-operative day #2. Patient is examined bedside with Dr. Arredondo. Patient continues to notice improvement in her hand pain. She is doing well with no complaints this morning. Prevena wound vac in place left hand. Vital signs stable. Objective - Vital Signs Vital signs: Vital Signs Temp 98 F 03/31/22 07:00 Pulse 67 03/31/22 07:00 Resp 18 03/31/22 07:00 BP 111/68 03/31/22 07:00 Pulse Ox 100 03/31/22 07:00 FiO2 Intake & Output 03/30/22 03/31/22 03/31/22 18:59 06:59 18:59 Intake Total 236 250 90 Balance 236 250 90 Intake: Intake, IV Titration 250 Amount Vancomycin 1,000 mg In 250 Sodium Chloride 0.9% 250 ml @ 125 mls/hr IVPB Q8H [facility] Rx#:[id number] Oral 236 90 Other: # Voids 3 1 - Exam On examination, patient is lying in bed in no apparent distress. She is alert and oriented 3. On inspection of the left hand, there is a surgical dressing in place over a Prevena wound VAC. The Prevena wound VAC is taken down and reveals a healing wound at the base of the thumb with no active drainage. No purulence. Mild surrounding erythema. The fingers and thumb are warm and well perfused with brisk capillary refill distally. Patient is able to move her fingers and thumb appropriately. Sensation is intact to light touch of the fingers and thumb. - Labs CBC & Chem 7: 03/30/22 08:26 03/31/22 06:36 Labs: Abnormal Lab Results - Last 24 Hours (Table) 03/30/22 03/30/22 Range/Units 08:25 09:10 Carbon Dioxide 19.4 L (20.0-27.5) mmol/L BUN 4.0 L (9.0-27.0) mg/dL Creatinine 0.5 L (0.6-1.5) mg/dL BUN/Creatinine Ratio 8.00 L (12.00-20.00) Ratio Calcium 8.6 L (8.7-10.3) mg/dL Total Bilirubin <0.15 L (0.30-1.20) mg/dL Albumin 3.4 L (3.8-4.9) g/dL Albumin/Globulin Ratio 1.10 L (1.60-3.17) g/dL U Benzodiazepines Scrn Positive A (Negative) Microbiology - Last 24 Hours (Table) 03/29/22 01:15 Gram Stain - Final Hand - Left Wound Culture - Final Strep pyogenes (grp a) Staphylococcus aureus 03/29/22 01:00 Blood Culture - Preliminary Blood No Growth after 48 hours 03/29/22 00:40 Blood Culture - Preliminary Blood No Growth after 48 hours Assessment and Plan Assessment: Status-post irrigation and debridement of left hand abscess and application of wound vac on 03/29/22. Post-operative day #2. (1) Cellulitis of left hand Current Visit: Yes Status: Acute Code(s): L03.114 - CELLULITIS OF LEFT UPPER LIMB SNOMED Code(s): 03253709 (2) Ulceration Current Visit: Yes Status: Acute Code(s): MHO0895 - SNOMED Code(s): 123646152 (3) Abscess of hand Current Visit: Yes Status: Acute Code(s): L02.519 - CUTANEOUS ABSCESS OF UNSPECIFIED HAND SNOMED Code(s): 8867334 Plan: - Prevena wound vac was removed bedside today and a new nonadherent dressing was applied. Patient was discussed in detail with our hand surgeon Dr. Dumont, and we will begin daily dressing changes with Tiffanie. We have no further plans for surgical intervention during this hospital stay. She should follow-up in the office in one week with Dr. Dumont. - Keep left hand elevated for swelling control. Pain management as needed. - Antibiotics per Dr. Guido. - We will follow patient closely while she remains inpatient.
--- NOTE | 2022-04-01 02:11 | P.DS ---
Providers Date of admission: 03/30/22 18:18 Attending physician: Russell Gramajo MD Consults: 03/29/22 01:36 Consult Physician Urgent Consulting Provider: Raul Guido Consult Reason/Comments: Left hand cellulitis; IV drug user Do you want consulting provider notified?: Yes 03/29/22 09:29 Consult Physician Urgent Consulting Provider: Humberto Arredondo Consult Reason/Comments: hand and wrist cellulitis Do you want consulting provider notified?: Yes Primary care physician: Ed Jean Hospital Course: Diagnoses: -Right hand/wrist cellulitis at the base of the thumb with open ulcer and pur ulent discharge, related to injectable drugs, status post I&D and debridement and wound VAC placement, which is removed prior to discharge -Limitation of movement of the right hand secondary to above, improving upon discharge -Heroine abuse and at-risk of withdrawal, patient was counseled, she does not want to quit -Anxiety and PTSD, not an active issue, not in active issue -History of seizure -Nicotine dependence Hospital course: This is a pleasant 26 years old female with past medical history of \Seizure Disorder, Anxiety, PTSD, every day smoker, heroine and prescription drug abuse. She is a patient of Dr. Jean She presents because of right hand/wrist infection for the last few days which is gradually getting worse, she admits to injecting heroin in that area before started getting infected. She has some swelling, tenderness and erythema with limitation of movement and hand roving hauler to considerable degree, she barely can been them. Also she has an open ulcers with a lot of purulent discharge, patient has been evaluated by orthopedic team and she underwent I and D, wound VAC was placed for 24 hours and removed this morning by orthopedic team with ulcer at the base of the right lateral thumb showing granulation tissue and is healing with no significant surrounding cellulitis. Also patient was treated with antibiotic and culture was growing Streptococcus pyogenes, antibiotics was adjusted upon discharge until Keflex by ID team, please refer to discharge instructions On the day of discharge patient was cleared by both orthopedics and infectious disease team, patient will be discharged on an oral antibiotics by ID team. She was started her to leave, she refused physical therapy or occupational therapy. Problems and management plan were discussed with the patient and he verbalized understanding and acceptance Patient was found stable and can be discharged home however he needs follow-up as an outpatient. Patient was instructed to follow up with PCP Dr. Jean within one week and patient agrees Also patient was instructed to follow-up with the hand surgeon Dr. echols in one week and infectious disease Dr. Guido in 10 days and she agrees to call and make her own appointment Physical exam Gen: patient is a AAOx3, no distress CVS: S1-S2, RRR, no murmur Lungs: B/L CTA, no wheezing Abdomen: soft, no distention, no tenderness, positive bowel sounds Extremity: no leg edema or induration Time spent more than 35 minutes Patient Condition at Discharge: Stable Plan - Discharge Summary Discharge Rx Participant: No New Discharge Prescriptions: New Cephalexin [Keflex] 500 mg PO Q6HR 14 Days #56 cap Discharge Medication List Cephalexin [Keflex] 500 mg PO Q6HR 14 Days #56 cap 03/31/22 [Rx] Follow up Appointment(s)/Referral(s): Ed Jean MD [Primary Care Provider] - 1-2 days Meliza Dumont DO [Doctor of Osteopathic Medicine] - 1 Week Raul Guido MD [STAFF PHYSICIAN] - 10 Days Activity/Diet/Wound Care/Special Instructions: Local wound care to the left hand wound with Aquacel silver dressing change every 48 hour, follow-up with Dr. Guido in the wound care center next week, call [phone] to make an appointment Heart healthy diet Activity is restricted till you see your doctor Discharge/Stand Alone Forms: Inp Substance Abuse Facilities, Personal Curb Builder Discharge Disposition: HOME SELF-CARE
--- NOTE | 2022-04-02 23:48 | CDI ---
Documentation Clarification Form Date: 04/02/2022 From: COURT [place] Admit Date: 03/30/2022 06:18:00 PM Patient Name: Jennifer Doe Visit Number: [id number] Discharge Date: 03/31/2022 01:06:00 PM ATTENTION: The Clinical Documentation Specialists (CDI) and [facility] Coding Staff appreciate your assistance in clarifying documentation. Please respond to the clarification below the line at the bottom and electronically sign. The CDI & [facility] Coding staff will review the response and follow-up if needed. Please note: Queries are made part of the Legal Health Record. If you have any questions, please contact the author of this message via ITS. Dr. Humberto Arerdondo Irrigation and debridement of left hand abscess is documented on 03/29 Procedure note. Additional clarification regarding the procedure is requested. History/Risk Factors: Left hand abscess History of IV drug use Current every day cigarette smoker Clinical Indicators: There was an abscess at the base of the left thumb that extended into the thenar eminence. Treatment: I began by opening up loculations deep within the abscess into the thenar eminence.A small amount of purulent material was expressed.The wound was then thoroughly irrigated using sterile saline, 3 L and cystoscopy tubing. Following irrigation and debridement of the wound an incisional wound VAC was placed. Please clarify the type of procedure performed: [ ] Excisional debridement (the removal of necrotic, devitalized tissue or slough by means of cutting away of tissue) [ ] Non-excisional debridement (the removal of necrotic, devitalized tissue or slough by means of flushing, brushing, or washing. (Irrigation) [ ] Other; please specify [ ] Unable to determine Five elements required for accurate and compliant documentation of a debridement: Technique used (e.g., excisional, excised, cutting, brushing, jet lavage etc.) Instrument(s) used (e.g., scalpel, curette, etc.) Nature of the tissue removed (e.g., necrotic, devitalized tissues, non-viable tissue, etc.) Appearance and size of the wound (e.g., down to fresh bleeding tissue, 7cm x 10cm, etc.) Depth of the debridement* (e.g., skin, subcutaneous tissue, fascia, muscle, bone, etc.) MTDD
--- NOTE | 2022-04-07 17:33 | P.PN ---
Subjective Progress Note Date: 03/30/22 Principal diagnosis: Left hand abscess Patient is a 26 female with past medical history significant for IV drug use presented to hospital with pain swelling redness to the left thumb and medial side of the hand with evidence of abscess status post surgical drainage. On today's evaluation that is 03/30/2022, the patient denies having any fever or any chills the patient pain to the left and is currently controlled, the patient denies any chest pain shortness breath cough no abdominal pain no diarrhea Objective - Vital Signs Vital signs: Vital Signs Temp 98.2 F 03/30/22 07:00 Pulse 68 03/30/22 07:00 Resp 14 03/30/22 07:00 BP 95/56 03/30/22 07:00 Pulse Ox 95 03/30/22 07:00 FiO2 Intake & Output 03/29/22 03/30/22 03/30/22 18:59 06:59 18:59 Intake Total 118 1500 0 Output Total 10 Balance 118 1490 0 Weight 58.967 kg Intake: IV 250 Intake, IV Titration 500 Amount Vancomycin 1,000 mg In 500 Sodium Chloride 0.9% 250 ml @ 125 mls/hr IVPB Q8H [facility] Rx#:[id number] Oral 118 750 0 Output: Estimated Blood Loss 10 Other: # Voids 1 - Exam GENERAL DESCRIPTION: Middle-aged female lying in bed in no distress RESPIRATORY SYSTEM: Unlabored breathing , decreased breath sounds at bases HEART: S1 S2 regular rate and rhythm , ABDOMEN: Soft , no tenderness EXTREMITIES: Left hand is currently dressed no drainage on the dressing - Labs CBC & Chem 7: 03/30/22 08:26 03/31/22 06:36 Labs: Abnormal Lab Results - Last 24 Hours (Table) 03/30/22 03/30/22 Range/Units 08:25 08:26 Hgb 11.5 L (12.0-15.0) g/dL Hct 37.1 L (37.2-46.3) % MCHC 31.0 L (32.0-37.0) g/dL Carbon Dioxide 19.4 L (20.0-27.5) mmol/L BUN 4.0 L (9.0-27.0) mg/dL Creatinine 0.5 L (0.6-1.5) mg/dL BUN/Creatinine Ratio 8.00 L (12.00-20.00) Ratio Calcium 8.6 L (8.7-10.3) mg/dL Total Bilirubin <0.15 L (0.30-1.20) mg/dL Albumin 3.4 L (3.8-4.9) g/dL Albumin/Globulin Ratio 1.10 L (1.60-3.17) g/dL Microbiology - Last 24 Hours (Table) 03/29/22 01:15 Gram Stain - Preliminary Hand - Left Wound Culture - Preliminary Strep pyogenes (grp a) 03/29/22 00:40 Blood Culture - Preliminary Blood No Growth after 24 hours 03/29/22 01:00 Blood Culture - Preliminary Blood No Growth after 24 hours 03/29/22 13:14 Anaerobic Culture - Preliminary Wrist - Left Assessment and Plan (1) Abscess of hand Status: Acute Code(s): L02.519 - CUTANEOUS ABSCESS OF UNSPECIFIED HAND SNOMED Code(s): 4639180 Plan: 1patient presented hospital with left hand abscess at the base of the left thumb from injection drug use likely from gram-positive skin michelle less likely gram-negative infection with concern for underlying abscess patient is status post surgical drainage the cultures currently pending 2patient to continue with vancomycin pharmacy to dose target trough of 15 while waiting for the cultures to finalize Time with Patient: Less than 30
--- NOTE | 2022-04-07 17:35 | P.PN ---
Subjective Progress Note Date: 03/31/22 Principal diagnosis: Left hand abscess Patient is a 26-year-old female with past medical history significant for IV drug use presented to hospital with pain swelling redness to the left thumb and medial side of the hand with evidence of abscess status post surgical drainage. On today's evaluation that is 03/31/2022, the patient remains to be afebrile, the patient pain to the left and is currently controlled, the patient denies any chest pain shortness breath cough no abdominal pain no diarrhea, patient is feeling better and wants to leave and threatening to leave AMA Objective - Vital Signs Vital signs: Vital Signs Temp 98 F 03/31/22 07:00 Pulse 67 03/31/22 07:00 Resp 18 03/31/22 07:00 BP 111/68 03/31/22 07:00 Pulse Ox 100 03/31/22 07:00 FiO2 Intake & Output 03/30/22 03/31/22 03/31/22 18:59 06:59 18:59 Intake Total 236 250 90 Output Total 0 Balance 236 250 90 Intake: Intake, IV Titration 250 Amount Vancomycin 1,000 mg In 250 Sodium Chloride 0.9% 250 ml @ 125 mls/hr IVPB Q8H [facility] Rx#:[id number] Oral 236 90 Output: Urine 0 Other: # Voids 3 1 - Exam GENERAL DESCRIPTION: Middle-aged female lying in bed in no distress RESPIRATORY SYSTEM: Unlabored breathing , decreased breath sounds at bases HEART: S1 S2 regular rate and rhythm , ABDOMEN: Soft , no tenderness EXTREMITIES: Left hand wound superficially with no slough tissue,no foul- smelling drainage - Labs CBC & Chem 7: 03/30/22 08:26 03/31/22 06:36 Labs: Abnormal Lab Results - Last 24 Hours (Table) 03/30/22 Range/Units 09:10 U Benzodiazepines Scrn Positive A (Negative) Microbiology - Last 24 Hours (Table) 03/29/22 13:14 Anaerobic Culture - Preliminary Wrist - Left 03/29/22 01:15 Gram Stain - Final Hand - Left Wound Culture - Final Strep pyogenes (grp a) Staphylococcus aureus 03/29/22 01:00 Blood Culture - Preliminary Blood No Growth after 48 hours 03/29/22 00:40 Blood Culture - Preliminary Blood No Growth after 48 hours Assessment and Plan (1) Abscess of hand Status: Acute Code(s): L02.519 - CUTANEOUS ABSCESS OF UNSPECIFIED HAND SNOMED Code(s): 4429308 (2) Cellulitis of left hand Status: Acute Code(s): L03.114 - CELLULITIS OF LEFT UPPER LIMB SNOMED Code(s): 32393741 Plan: 1patient presented hospital with left hand abscess at the base of the left thumb from injection drug use likely from gram-positive skin michelle less likely gram-negative infection with concern for underlying abscess patient is status post surgical drainage the cultures currently pending 2patient local culture growing Streptococcus pyogenes patient is threatening to leave AMA antibiotic will be switched over to oral Keflex 500 mg every 6 hours for 10 days with close outpatient follow-up local wound care with Aquacel silver dressing advised to follow-up in the wound care center next week Time with Patient: Less than 30
== END 2022-03-31 13:06 | disposition home or self-care (01) | DRG 580 ==
LOC: EC 21:19 → 6NMEDSUR 03-29 01:36 → OBSVTOIN 03-30 18:18
PROVIDERS: ADMIT Internal Medicine; ATTEND Internal Medicine
PROC: 0JBK0ZZ Excision of Left Hand Subcutaneous Tissue and Fascia, Open Approach (ICD-10-PCS; principal; 2022-03-29 19:47)
DX: L03.113 Cellulitis of right upper limb (principal); F11.23 Opioid dependence with withdrawal; L02.512 Cutaneous abscess of left hand; L03.114 Cellulitis of left upper limb; F17.210 Nicotine dependence, cigarettes, uncomplicated; G40.909 Epilepsy, unspecified, not intractable, without status epilepticus; F43.10 Post-traumatic stress disorder, unspecified
CPT/HCPCS: 36415; 80053; 80202; 80306; 82565; 83605; 84703; 85025; 87040; 87070; 87075; 87077; 87186; 87205; 96365; 99285

== ENCOUNTER 2023-05-19 19:19 | Emergency (ER) | payer OTHER ==
[2023-05-19 19:26] VITALS: BP 108/72; PULSE 93; RESP 18; TEMP 98.5
[2023-05-19] MEDS ORDERED: PENICILLIN G BENZATHINE 1,200,000 UNIT/2 ML SYRINGE IM STA (20:43)
--- NOTE | 2023-05-19 20:48 | ED ---
Recheck HPI - General Chief Complaint: Recheck/Abnormal Lab/Rx Stated Complaint: NEEDS INJECTION Time Seen by Provider: 05/19/23 20:40 Source: family Mode of arrival: ambulatory Limitations: no limitations - History of Present Illness Initial Comments: 27-year-old female presenting requesting treatment for syphilis. States that she received testing on an urgent care a few days ago and was just made aware today she did test positive. She states that for about a month and a half she has had sores as well as nausea and hearing disturbances. No vaginal bleeding or discharge. No numbness or tingling. No chest pain or difficulty breathing. No abdominal pain. - Related Data Previous Rx's Medication Instructions Recorded Cephalexin [Keflex] 500 mg PO Q6HR 14 Days #56 cap 03/31/22 Allergies Allergy/AdvReac Type Severity Reaction Status Date / Time No Known Allergies Allergy Verified 05/19/23 19:26 Review of Systems ROS Statement: Those systems with pertinent positive or pertinent negative responses have been documented in the HPI. ROS Other: All systems not noted in ROS Statement are negative. Past Medical History Past Medical History: No Reported History, Seizure Disorder History of Any Multi-Drug Resistant Organisms: None Reported Past Surgical History: Adenoidectomy, Tonsillectomy Additional Past Surgical History / Comment(s): Past Psychological History: Anxiety, PTSD Smoking Status: Current every day smoker Past Alcohol Use History: None Reported Past Drug Use History: Heroin, Prescription Drug Abuse General Exam Limitations: no limitations General appearance: alert, in no apparent distress Head exam: Present: atraumatic, normocephalic, normal inspection Eye exam: Present: normal appearance, EOMI Neck exam: Present: normal inspection, full ROM Respiratory exam: Absent: respiratory distress Neurological exam: Present: alert, oriented X3, CN II-XII intact Psychiatric exam: Present: normal affect, normal mood Skin exam: Present: warm, dry, intact, normal color. Absent: rash Course Vital Signs 05/19/23 19:23 Temperature 98.5 F Pulse Rate 93 Respiratory 18 Rate Blood Pressure 108/72 O2 Sat by Pulse 99 Oximetry Medical Decision Making - Medical Decision Making Was pt. sent in by a medical professional or institution (, PA, SERVICE COORDINATOR, urgent care, hospital, or residential...) When possible be specific @ -No Did you speak to anyone other than the patient for history (EMS, parent, family, police, friend...)? What history was obtained from this source @ -No Did you review nursing and triage notes (agree or disagree)? Why? @ -I reviewed and agree with nursing and triage notes Were old charts reviewed (outside hosp., previous admission, EMS record, old EKG, old radiological studies, urgent care reports/EKG's, residential records)? Report findings @ -No old charts were reviewed Differential Diagnosis (chest pain, altered mental status, abdominal pain women, abdominal pain men, vaginal bleeding, weakness, fever, dyspnea, syncope, headache, dizziness, GI bleed, back pain, seizure, CVA, palpatations, mental health, musculoskeletal)? @ -not applicable EKG interpreted by me (3pts min.). @ -As above X-rays interpreted by me (1pt min.). @ -None done CT interpreted by me (1pt min.). @ -None done U/S interpreted by me (1pt. min.). @ -None done What testing was considered but not performed or refused? (CT, X-rays, U/S, labs)? Why? @ -None What meds were considered but not given or refused? Why? @ -None Did you discuss the management of the patient with other professionals (professionals i.e. , PA, SERVICE COORDINATOR, lab, RT, psych nurse, director of social services, painter aircraft, teacher, senior commercial loan officer, medical case worker)? Give summary @ -No Was smoking cessation discussed for >3mins.? @ -No Was critical care preformed (if so, how long)? @ -No Were there social determinants of health that impacted care today? How? (Homelessness, low income, unemployed, alcoholism, drug addiction, transportation, low edu. Level, literacy, decrease access to med. care, halfway, rehab)? @ -No Was there de-escalation of care discussed even if they declined (Discuss DNR or withdrawal of care, Hospice)? DNR status @ -No What co-morbidities impacted this encounter? (DM, HTN, Smoking, COPD, CAD, Cancer, CVA, ARF, Chemo, Hep., AIDS, mental health diagnosis, sleep apnea, morbid obesity)? @ -None Was patient admitted / discharged? Hospital course, mention meds given and route, prescriptions, significant lab abnormalities, going to OR and other pertinent info. @ -27-year-old female requesting treatment for syphilis. States that she was recently tested urgent care and came back positive today. She admits to sores, nausea, and hearing disturbances ongoing for the last month and a half. Patient is treated with IM penicillin. She is instructed to follow-up with her PCP. Follow-up with PCP. Report back to ER with any new or worsening symptoms. Discussed return parameters and answered all questions. Patient conveyed verbal understanding and agreed to the plan. I discussed this case in detail with my attending Dr. Toledo Undiagnosed new problem with uncertain prognosis? @ -No Drug Therapy requiring intensive monitoring for toxicity (Heparin, Nitro, Insulin, Cardizem)? @ -No Were any procedures done? @ -No Diagnosis/symptom? @ -Syphilis Acute, or Chronic, or Acute on Chronic? @ -Acute Uncomplicated (without systemic symptoms) or Complicated (systemic symptoms)? @ -Uncomplicated Side effects of treatment? @ -No Exacerbation, Progression, or Severe Exacerbation? @ -No Poses a threat to life or bodily function? How? (Chest pain, [place], [place], pneumonia, PE, COPD, DKA, ARF, appy, cholecystitis, CVA, Diverticulitis, Homicidal, Suicidal, threat to staff... and all critical care pts) @ -No Disposition Clinical Impression: Syphilis Disposition: HOME SELF-CARE Condition: Good Instructions (If sedation given, give patient instructions): Syphilis (ED) Additional Instructions: Follow-up with PCP. Report back to ER with any new or worsening symptoms. Is patient prescribed a controlled substance at d/c from ED?: No Referrals: Ed Jean MD [Primary Care Provider] - 1-2 days Time of Disposition: 20:48
== END 2023-05-19 21:45 | disposition home or self-care (01) ==
LOC: EC 19:19
DX: A53.9 Syphilis, unspecified (principal); F17.200 Nicotine dependence, unspecified, uncomplicated; F15.90 Other stimulant use, unspecified, uncomplicated; Z86.59 Personal history of other mental and behavioral disorders
CPT/HCPCS: 99283; 96372; J0561

== ENCOUNTER 2024-09-29 18:05 | Emergency (ER) | payer OTHER ==
[2024-09-29 18:47] VITALS: RESP 18
--- NOTE | 2024-09-29 18:51 | ED ---
Skin/Abscess/FB HPI - General Chief complaint: Skin/Abscess/Foreign Body Stated complaint: L foot infection Time Seen by Provider: 09/29/24 18:20 Source: patient, RN notes reviewed Mode of arrival: ambulatory Limitations: no limitations - History of Present Illness Initial comments: This is a 28-year-old female presenting with possible left foot infection x 1 day. Patient endorses area of redness with warmth and tenderness on the dorsal aspect of her left foot. Denies recent trauma, open wound or known cause for color change. Denies other systemic symptoms at this time. Denies [id number] medication use prior to arrival. MD complaint: rash Onset/Timin -: days(s) Consistency: constant Improves with: none Worsens with: palpation Context: none Associated symptoms: denies other symptoms - Related Data Previous Rx's Medication Instructions Recorded Cephalexin [Keflex] 500 mg PO Q6HR 14 Days #56 cap 03/31/22 Allergies Allergy/AdvReac Type Severity Reaction Status Date / Time No Known Allergies Allergy Verified 09/29/24 18:47 Review of Systems ROS Statement: Those systems with pertinent positive or pertinent negative responses have been documented in the HPI. ROS Other: All systems not noted in ROS Statement are negative. Past Medical History Past Medical History: No Reported History, Seizure Disorder History of Any Multi-Drug Resistant Organisms: None Reported Past Surgical History: Adenoidectomy, Tonsillectomy Additional Past Surgical History / Comment(s): Past Psychological History: Anxiety, PTSD Smoking Status: Current every day smoker Past Alcohol Use History: None Reported Past Drug Use History: Heroin, Prescription Drug Abuse General Exam Limitations: no limitations General appearance: alert, in no apparent distress Head exam: Present: atraumatic, normocephalic, normal inspection Eye exam: Present: normal appearance, PERRL, EOMI. Absent: scleral icterus, conjunctival injection, periorbital swelling ENT exam: Present: normal exam, mucous membranes moist Neck exam: Present: normal inspection. Absent: tenderness, meningismus, lymphadenopathy Respiratory exam: Present: normal lung sounds bilaterally. Absent: respiratory distress, wheezes, rales, rhonchi, stridor Cardiovascular Exam: Present: regular rate, normal rhythm, normal heart sounds. Absent: systolic murmur, diastolic murmur, rubs, gallop, clicks GI/Abdominal exam: Present: soft, normal bowel sounds. Absent: distended, tenderness, guarding, rebound, rigid Extremities exam: Present: normal inspection, full ROM, normal capillary refill. Absent: tenderness, pedal edema, joint swelling, calf tenderness Back exam: Present: normal inspection Neurological exam: Present: alert, oriented X3, CN II-XII intact Psychiatric exam: Present: normal affect, normal mood Skin exam: Present: warm, dry, intact, normal color, rash (Circular 6 cm erythematous macular rash noted on mid dorsal aspect of left foot with no obvious open wound, edema, discharge. Positive warmth, TTP) Course Vital Signs 09/29/24 18:45 Temperature 98.1 F Pulse Rate 120 H Respiratory 18 Rate Blood Pressure 109/71 O2 Sat by Pulse 98 Oximetry Medical Decision Making - Medical Decision Making Was pt. sent in by a medical professional or institution (, [facility], [employer], urgent care, hospital, or longterm...) When possible be specific @ -[No] Did you speak to anyone other than the patient for history (EMS, parent, family, police, friend...)? What history was obtained from this source @ -[No] Did you review nursing and triage notes (agree or disagree)? Why? @ -[I reviewed and agree with nursing and triage notes] Were old charts reviewed (outside hosp., previous admission, EMS record, old EKG, old radiological studies, urgent care reports/EKG's, longterm records)? Report findings @ -[No old charts were reviewed] Differential Diagnosis (chest pain, altered mental status, abdominal pain women, abdominal pain men, vaginal bleeding, weakness, fever, dyspnea, syncope, headache, dizziness, GI bleed, back pain, seizure, CVA, palpatations, mental health, musculoskeletal)? @ -Cellulitis, tinea corporis, tinea pedis, atopic dermatitis, insect bite, contact dermatitis, MRSA, this is not an exhaustive list EKG interpreted by me (3pts min.). @ -Not done X-rays interpreted by me (1pt min.). @ -[None done] CT interpreted by me (1pt min.). @ -[None done] U/S interpreted by me (1pt. min.). @ -[None done] What testing was considered but not performed or refused? (CT, X-rays, U/S, labs)? Why? @ -[None] What meds were considered but not given or refused? Why? @ -[None] Did you discuss the management of the patient with other professionals (professionals i.e. , PA, [employer], lab, RT, psych nurse, web content & social media manager, intake rn, teacher, public relations officer, geriatric case manager)? Give summary @ -[No] Was smoking cessation discussed for >3mins.? @ -[No] Was critical care preformed (if so, how long)? @ -[No] Were there social determinants of health that impacted care today? How? (Homelessness, low income, unemployed, alcoholism, drug addiction, transportation, low edu. Level, literacy, decrease access to med. care, detention, rehab)? @ -[No] Was there de-escalation of care discussed even if they declined (Discuss DNR or withdrawal of care, Hospice)? DNR status @ -[No] What co-morbidities impacted this encounter? (DM, HTN, Smoking, COPD, CAD, Cancer, CVA, ARF, Chemo, Hep., AIDS, mental health diagnosis, sleep apnea, morbid obesity)? @ -[None] Was patient admitted / discharged? Hospital course, mention meds given and route, prescriptions, significant lab abnormalities, going to OR and other pertinent info. @ -[hospital course] Undiagnosed new problem with uncertain prognosis? @ -[No] Drug Therapy requiring intensive monitoring for toxicity (Heparin, Nitro, Insulin, Cardizem)? @ -[No] Were any procedures done? @ -[No] Diagnosis/symptom? @ -Cellulitis Acute, or Chronic, or Acute on Chronic? @ -Acute Uncomplicated (without systemic symptoms) or Complicated (systemic symptoms)? @ -Uncomplicated Side effects of treatment? @ -[No] Exacerbation, Progression, or Severe Exacerbation? @ -[No] Poses a threat to life or bodily function? How? (Chest pain, [place], AR, pneumonia, PE, COPD, DKA, ARF, appy, cholecystitis, CVA, Diverticulitis, Homicidal, Suicidal, threat to staff... and all critical care pts) @ -[No] Disposition Clinical Impression: Cellulitis Disposition: HOME SELF-CARE Condition: Good Instructions (If sedation given, give patient instructions): Cellulitis (ED) Is patient prescribed a controlled substance at d/c from ED?: No Referrals: Ed Jean MD [Primary Care Provider] - 1-2 days Time of Disposition: 18:51
[2024-09-29 19:29] VITALS: BP 109/75; PULSE 102; TEMP 98.2
== END 2024-09-29 19:28 | disposition home or self-care (01) ==
LOC: EC 18:05
DX: L08.9 Local infection of the skin and subcutaneous tissue, unspecified (principal); F17.200 Nicotine dependence, unspecified, uncomplicated
CPT/HCPCS: 99283